=== PATIENT | female | born 1980 | race Caucasian/White ===

== ENCOUNTER → 2023-06-08 15:45 | Outpatient (CLI) | payer BC, SELFPAY ==
--- NOTE | ~2023-06-08 | MM_ITS ---
EXAMINATION: MM screening [facility] w teresa HISTORY: Screening mammogram TECHNIQUE: Craniocaudal and mediolateral oblique 3-D tomosynthesis images were obtained and synthetic 2-D images were generated. CAD analysis was submitted and interpreted. COMPARISON: No prior mammogram is available for comparison at this institution. BREAST PARENCHYMAL COMPOSITION: There are scattered areas of fibroglandular density. FINDINGS: There is no evidence of suspicious mass, calcification, or architectural distortion to sugg est malignancy in either breast. IMPRESSION: 1. No mammographic evidence of malignancy. 2. Recommend routine screening mammography in one year. BI-RADS Category 1: Negative Reviewed, dictated and finalized at location A. [employer]
== END ==
PROVIDERS: PCP Obstetrics & Gynecology; Visit Provider Obstetrics & Gynecology
DX: Z12.31 Encounter for screening mammogram for malignant neoplasm of breast (principal)
CPT/HCPCS: 77063; 77067

== ENCOUNTER 2024-07-03 15:58 | Outpatient (CLI) | payer BC, SELFPAY | END 2024-07-03 15:59 | disposition home or self-care (01) | LOC: MICIMG 15:59 | PROVIDERS: PCP Family Medicine; Visit Provider Nurse Practitioner Family | DX: E06.3 Autoimmune thyroiditis (principal); E55.9 Vitamin D deficiency, unspecified | CPT/HCPCS: 76536 ==

== ENCOUNTER 2024-11-29 12:13 | Outpatient (CLI) | payer BC, SELFPAY ==
--- NOTE | ~2024-11-29 | MM_ITS ---
EXAMINATION: MM screening [facility] w teresa HISTORY: Screening TECHNIQUE: Craniocaudal and mediolateral oblique 3-D tomosynthesis images were obtained and synthetic 2-D images were generated. CAD analysis was submitted and interpreted. COMPARISON: 06/08/2023 BREAST PARENCHYMAL COMPOSITION: Not dense: There are scattered areas of fibroglandular density. FINDINGS: There is no evidence of suspicious mass, calcification, or architectural distortion to sugg est malignancy in either breast. There has been no suspicious interval change. IMPRESSION: 1. No mammographic evidence of malignancy. 2. Recommend routine screening mammography in one year. BI-RADS Category 1: Negative Reviewed, dictated and finalized at location B.
== END 2024-11-29 12:14 | disposition home or self-care (01) ==
LOC: MICIMG 12:14
PROVIDERS: PCP Family Medicine; Visit Provider Obstetrics & Gynecology
DX: Z12.31 Encounter for screening mammogram for malignant neoplasm of breast (principal)
CPT/HCPCS: 77063; 77067